=== PATIENT | male | born 2000 | race Caucasian/White ===

== ENCOUNTER 2020-01-12 17:01 | Emergency (ER) | payer OTHER ==
[2020-01-12 18:03] VITALS: BP 115/72
[2020-01-12] MEDS ORDERED: ACETAMINOPHEN 325 MG TABLET PO ONE (18:50)
[2020-01-12 19:25] LABS: ABSOLUTE LYMPHOCYTES (AUTO) 0.9 10^3/uL (0.5-4.7); ABSOLUTE MONOCYTES (AUTO) 0.4 10^3/uL (0.1-1.4); ABSOLUTE NEUT (AUTO) 9.3 10^3/uL (1.7-8.2); BASOPHILS % (AUTO) 0.4 % (0-2); EOSINOPHILS % (AUTO) 0.3 % (0-6); HEMATOCRIT 44.8 % (37.9-51.0); HEMOGLOBIN 15.6 g/dL (13.5-17.0); LYMPHOCYTES % (AUTO) 8.8 % (13-45); MEAN CORPUSCULAR HGB CONC 34.9 g/dL (32.0-36.0); MEAN CORPUSCULAR VOLUME 86 fl (80-97); MONOCYTES % (AUTO) 3.7 % (3-13); PLATELET COUNT 301 10^3/uL (150-450); RED CELL DISTRIBUTION WIDTH 12.2 % (11.5-14.0); SEGMENTED NEUTROPHILS % (AUTO) 86.8 % (42-78); TOTAL CELLS COUNTED % (AUTO) 100 %; WHITE BLOOD COUNT 10.7 10^3/uL (4.0-10.5)
[2020-01-12 19:38] LABS: ALBUMIN 4.4 g/dL (3.5-5.0); ALKALINE PHOSPHATASE 91 U/L (38-126); ANION GAP 10 (5-19); ASPARTATE AMINO TRANSFERASE 31 U/L (17-59); BILIRUBIN,DIRECT 0.1 mg/dL (0.0-0.4); BILIRUBIN,TOTAL 1.7 mg/dL (0.2-1.3); BLOOD UREA NITROGEN 12 mg/dL (7-20); CALCIUM 9.6 mg/dL (8.4-10.2); CARBON DIOXIDE 30 mmol/L (22-30); CHLORIDE 97 mmol/L (98-107); GLUCOSE 113 mg/dL (75-110); POTASSIUM 4.2 mmol/L (3.6-5.0); TOTAL PROTEIN 7.8 g/dL (6.3-8.2)
[2020-01-12] MEDS ORDERED: RINGERS SOLUTION,LACTATED 1,000 ML IV PRN (19:58)
[2020-01-12] MEDS ORDERED: ONDANSETRON HCL INJ/PF 4 MG/2 ML SDV IV ONE (19:59)
--- NOTE | 2020-01-12 20:11 | ER Document Report ---
ED General - General Chief Complaint: Nausea/Vomiting/Diarrhea Stated Complaint: COUGH,DIARRHEA Time Seen by Provider: 01/12/20 19:11 - HPI Notes: Chief complaint: Fl[place] illness History of present illness: 19-year-old generally healthy male [employer] presenting with 1 week history of cough productive of minimal amounts of white sputum. He reports some generalized malaise and within the last 24 hours has developed some watery stools. He is nauseated and has vomited once today. Low-grade temperature. Patient denies known exposure to COVID-19. He says he has not traveled outside the area. Non-smoker. Occasional social alcohol. Tonsillectomy in childhood with no other surgery. No other hospitalizations. No chronic medications. - Related Data Allergies/Adverse Reactions: gentamicin Allergy (Verified 01/12/20 18:49) peanut Allergy (Verified 01/12/20 18:49) Past Medical History - General Information source: Patient - Social History Smoking Status: Never Smoker Frequency of alcohol use: Social Drug Abuse: None Family History: Reviewed & Not Pertinent - Medical History Medical History: Negative Past Surgical History: Reports: Hx Tonsillectomy Review of Systems - Review of Systems Notes: Constitutional: As per HPI. HENT: Negative for sore throat. Denies impairment of sense of smell or taste. Eyes: Negative for visual changes. Cardiovascular: Negative for chest pain. Respiratory: As per HPI. Gastrointestinal: As per HPI. Genitourinary: Negative for dysuria. Musculoskeletal: Negative for back pain. Skin: Negative for rash. Neurological: Negative for headaches, weakness or numbness. 10 point ROS negative except as marked above and in HPI. Physical Exam - Vital signs Vitals: Temp Pulse Resp BP Pulse Ox 100.8 F H 107 H 20 115/72 94 01/12/20 17:37 01/12/20 17:37 01/12/20 17:37 01/12/20 17:37 01/12/20 17:37 Interpretation: Febrile - Notes Notes: GENERAL: Well-developed well-nourished male approximately stated age appearing in no acute distress. SKIN: Moist. Good turgor no rashes. HEAD: Normocephalic atraumatic. EYES: PERRLA. EOMI. Conjunctivae and sclerae clear. EARS: CANALS AND TMS CLEAR. NOSE: CLEAR. MOUTH: Moist mucosa. Good dentition. No stridor or edema. No drooling. NECK: Supple. No masses or thyromegaly. No adenopathy. Carotids 2+ without bruits. No JVD. BACK: Symmetrical without tenderness. CHEST: Slight cough. Respirations unlabored. Breath sounds clear and symmetrical. HEART: Regular rhythm. No murmur gallop or rub. ABDOMEN: Soft nontender without masses, organomegaly or rebound. Bowel sounds normally active. No bruits. GENITALIA: Deferred. EXTREMITIES: No edema. No calf tenderness. Cap refill less than 1.5 seconds. Dorsalis pedis and posterior tibial pulses 3+ and symmetrical. NEUROLOGICAL: GCS 15. Alert and oriented x3. Normal gait. Fluent speech. Cranial nerves II through XII intact. Sensorimotor and cerebellar normal. Normal tone. PSYCHIATRIC: Appropriate affect. Course - Re-evaluation Re-evalutation: 01/12/20 20:53 Patient has determined he wishes to sign out AMA. He appears to have adequate capacity to execute this decision. I have explained to him this is not in his best interest. He is furthermore advised that he may return here for further evaluation if he so desires at any point. - Vital Signs Vital signs: Temp Pulse Resp BP Pulse Ox 100.8 F H 107 H 20 115/72 94 01/12/20 17:37 01/12/20 17:37 01/12/20 17:37 01/12/20 17:37 01/12/20 17:37 - Laboratory Result Diagrams: 01/12/20 19:01 01/12/20 19:01 Laboratory results interpreted by me: 01/12/20 01/12/20 19:01 19:01 WBC 10.7 H Lymph % (Auto) 8.8 L Absolute Neuts (auto) 9.3 H Seg Neutrophils % 86.8 H Sodium 136.6 L Chloride 97 L Glucose 113 H Total Bilirubin 1.7 H Discharge - Discharge Clinical Impression: Left AMA Disposition: AGAINST MEDICAL ADVICE
--- NOTE | 2020-01-12 21:05 | RADIOLOGY REPORT (SQ) ---
EXAM DESCRIPTION: XR CHEST 1 VIEW COMPLETED DATE/TME: 01/12/2020 19:58 CLINICAL HISTORY: 19 years Male cough, fever COMPARISON: None. FINDINGS: The cardiomediastinal silhouette appears unremarkable. No consolidating infiltrates or pleural effusions. No pneumothorax. IMPRESSION: No acute abnormality is identified.
== END 2020-01-12 20:40 | disposition left against medical advice (07) ==
LOC: ER 17:01
DX: R11.2 Nausea with vomiting, unspecified (principal); R19.7 Diarrhea, unspecified; Z20.828 Contact with and (suspected) exposure to other viral communicable diseases
CPT/HCPCS: 99284; 36415; 85025; 87635; 80053; 71045; C9803

== ENCOUNTER 2020-01-13 09:51 | Emergency (ER) | payer OTHER ==
[2020-01-13 10:05] VITALS: BP 146/61
[2020-01-13 10:58] LABS: ABSOLUTE LYMPHOCYTES (AUTO) 1.1 10^3/uL (0.5-4.7); ABSOLUTE MONOCYTES (AUTO) 0.4 10^3/uL (0.1-1.4); ABSOLUTE NEUT (AUTO) 9.5 10^3/uL (1.7-8.2); BASOPHILS % (AUTO) 0.3 % (0-2); EOSINOPHILS % (AUTO) 0.4 % (0-6); HEMATOCRIT 44.1 % (37.9-51.0); HEMOGLOBIN 15.3 g/dL (13.5-17.0); LYMPHOCYTES % (AUTO) 9.9 % (13-45); MEAN CORPUSCULAR HEMOGLOBIN 29.8 pg (27.0-33.4); MEAN CORPUSCULAR HGB CONC 34.8 g/dL (32.0-36.0); MEAN CORPUSCULAR VOLUME 86 fl (80-97); MONOCYTES % (AUTO) 3.5 % (3-13); PLATELET COUNT 346 10^3/uL (150-450); RED BLOOD COUNT 5.14 10^6/uL (4.35-5.55); RED CELL DISTRIBUTION WIDTH 12.2 % (11.5-14.0); SEGMENTED NEUTROPHILS % (AUTO) 85.9 % (42-78); TOTAL CELLS COUNTED % (AUTO) 100 %
[2020-01-13 11:14] LABS: ALBUMIN 3.8 g/dL (3.5-5.0); ALKALINE PHOSPHATASE 70 U/L (38-126); ANION GAP 8 (5-19); ASPARTATE AMINO TRANSFERASE 35 U/L (17-59); BILIRUBIN,DIRECT 0.1 mg/dL (0.0-0.4); BILIRUBIN,TOTAL 1.3 mg/dL (0.2-1.3); BLOOD UREA NITROGEN 13 mg/dL (7-20); CALCIUM 9.1 mg/dL (8.4-10.2); CARBON DIOXIDE 28 mmol/L (22-30); CHLORIDE 99 mmol/L (98-107); GLUCOSE 121 mg/dL (75-110); POTASSIUM 4.1 mmol/L (3.6-5.0); TOTAL PROTEIN 7.1 g/dL (6.3-8.2)
--- NOTE | 2020-01-13 11:38 | ER Document Report ---
ED General - General Chief Complaint: Diarrhea Stated Complaint: COUGH,VOMITING,FEVER Time Seen by Provider: 01/13/20 11:37 - HPI Patient complains to provider of: fever Notes: Presents with several day history of fever decreased oral intake secondary to nausea and diarrhea. Concerned he could have coronavirus. Patient took Tylenol this morning at 915 febrile and mildly tachycardic here in the emergency department. Denies all the symptoms - Related Data Allergies/Adverse Reactions: gentamicin Allergy (Verified 01/12/20 18:49) peanut Allergy (Verified 01/12/20 18:49) Past Medical History - Social History Smoking Status: Never Smoker Frequency of alcohol use: Social Drug Abuse: Marijuana Family History: Reviewed & Not Pertinent Past Surgical History: Reports: Hx Tonsillectomy Review of Systems - Review of Systems Notes: REVIEW OF SYSTEMS: CONSTITUTIONAL: fever EENT: -eye pain, -difficulty swallowing, -nasal congestion CARDIOVASCULAR: -chest pain, -syncope. RESPIRATORY: -cough, -SOB GASTROINTESTINAL: -abdominal pain, positive nausea and diarhea GENITOURINARY: -dysuria, -hematuria MUSCULOSKELETAL: -back pain, -neck pain SKIN: -rash or skin lesions. HEMATOLOGIC: -easy bruising or bleeding. LYMPHATIC: -swollen, enlarged glands. NEUROLOGICAL: -altered mental status or loss of consciousness, -headache, -ne urologic symptoms PSYCHIATRIC: -anxiety, -depression. ALL OTHER SYSTEMS REVIEWED AND NEGATIVE. Physical Exam - Vital signs Vitals: Temp Pulse Resp BP Pulse Ox 100.5 F H 106 H 16 146/61 H 95 01/13/20 10:00 01/13/20 10:00 01/13/20 10:00 01/13/20 10:00 01/13/20 10:00 - Notes Notes: PHYSICAL EXAMINATION: GENERAL: Well-appearing, well-nourished and in no acute distress. HEAD: Atraumatic, normocephalic. EYES: Pupils equal round sclera anicteric, conjunctiva are normal. ENT: nares patent, oropharynx clear without exudates. Moist mucous membranes. NECK: Normal range of motion, EXTREMITIES: Normal range of motion, no pitting or edema. No cyanosis. NEUROLOGICAL: Cranial nerves grossly intact. Normal speech, normal gait. PSYCH: Normal mood, normal affect. SKIN: Warm, Dry, normal turgor, no rashes or lesions noted. Course - Re-evaluation Re-evalutation: 01/13/20 11:47 Appearing man in no acute distress presents for short duration nausea vomiting fever. Concern for coronavirus. 01/13/20 11:47 Mild leukocytosis, preserve renal function. 01/13/20 11:48 She will be given fluid resuscitation, IV dextrose antiemetics and antipyretics. Feeling markedly improved. 01/13/20 12:42 Patient is COVID test pending at this time. Chest x-ray concerning for left lower lobe pneumonia. Will initiate antibiotic therapy department follow-up PCP return if any changes - Vital Signs Vital signs: Temp Pulse Resp BP Pulse Ox 100.5 F H 106 H 16 146/61 H 95 01/13/20 10:00 01/13/20 10:00 01/13/20 10:00 01/13/20 10:00 01/13/20 10:00 - Laboratory Result Diagrams: 01/13/20 10:36 01/13/20 10:36 Laboratory results interpreted by me: 01/13/20 01/13/20 10:36 10:36 WBC 11.0 H Lymph % (Auto) 9.9 L Absolute Neuts (auto) 9.5 H Seg Neutrophils % 85.9 H Sodium 135.0 L Glucose 121 H Discharge - Discharge Clinical Impression: Exposure to COVID-19 virus Pneumonia Qualifiers: Pneumonia type: due to unspecified organism Laterality: left Lung location: lower lobe of lung Qualified Code(s): J18.9 - Pneumonia, unspecified organism Condition: Stable Disposition: HOME, SELF-CARE Instructions: COVID-19 Guidance for Persons Under Investigation Additional Instructions: See your PCP Prescriptions: Cefdinir 300 mg PO BID 7 Days #14 capsule
[2020-01-13] MEDS ORDERED: ONDANSETRON HCL INJ/PF 4 MG/2 ML SDV IV ONE (11:43)
[2020-01-13] MEDS ORDERED: NORMAL SALINE 1000 ML 1,000 ML IV ONE (11:43)
[2020-01-13] MEDS ORDERED: DEXTROSE 50%-WATER 25 GM/50 ML DISP.SYRIN IV ONE (11:43)
[2020-01-13] MEDS ORDERED: IBUPROFEN 600 MG TABLET PO ONE (11:44)
--- NOTE | 2020-01-13 12:38 | RADIOLOGY REPORT (SQ) ---
EXAM DESCRIPTION: CHEST SINGLE VIEW IMAGES COMPLETED DATE/TIME: 01/13/2020 11:59 am REASON FOR STUDY: cough COMPARISON: 01/12/2020 EXAM PARAMETERS: NUMBER OF VIEWS: One view. TECHNIQUE: Single frontal radiographic view of the chest acquired. RADIATION DOSE: NA LIMITATIONS: None. FINDINGS: LUNGS AND PLEURA: Ill-defined opacification in the left base. MEDIASTINUM AND HILAR STRUCTURES: No masses. Contour normal. HEART AND VASCULAR STRUCTURES: Heart normal in size. Normal vasculature. BONES: No acute findings. HARDWARE: None in the chest. OTHER: No other significant finding. IMPRESSION: Cannot exclude a limited left lower lobe pneumonia. TECHNICAL DOCUMENTATION: JOB ID: [id number] 2010 [employer]- All Rights Reserved Reading location - IP/workstation name: [email or web address]
== END 2020-01-13 12:57 | disposition home or self-care (01) ==
LOC: ER 09:51
DX: J18.9 Pneumonia, unspecified organism (principal); R50.9 Fever, unspecified; R11.2 Nausea with vomiting, unspecified; R19.7 Diarrhea, unspecified; Z88.1 Allergy status to other antibiotic agents; Z91.010 Allergy to peanuts; Z20.828 Contact with and (suspected) exposure to other viral communicable diseases
CPT/HCPCS: 99284; 96361; 96374; 96375; 36415; 85025; 80053; 71045; J3490; J2405; J7030

== ENCOUNTER 2020-03-24 18:37 | Emergency (ER) | payer OTHER ==
[2020-03-24 18:54] VITALS: BP 142/87
--- NOTE | 2020-03-24 19:02 | ER Document Report ---
ED Breast Problem - General Chief Complaint: Breast Lump Stated Complaint: BREAST LUMP Time Seen by Provider: 03/24/20 18:52 Mode of Arrival: Ambulatory Information source: Patient Notes: 19-year-old male presented to ED for having lump in the right breast at 9 o'clock position. He states he does not know how long it is been there. He states 1 day he bumped against it and it was tender and since then he is noticed that is gotten larger. He is concerned because now he thinks he is feeling 1 in the other breast as well. 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 I have instructed him that we do not do ultrasounds of the breast in the emergency room except for abscesses which this is not an abscess. I stated that he would need to follow-up with his primary care doctor. He verbalized that he is active duty [employer] and he will have to go to the ER at [facility] because he does not have a primary care doctor. - HPI Patient complains to provider of: Lump, Swelling Onset: Other - States he first noticed it a month ago Onset/Duration: Persistent Quality of pain: No pain Severity: None Pain Level: Denies Discharge description: None Associated Symptoms: None Similar symptoms previously: Yes Recently seen / treated by doctor: No - Related Data Allergies/Adverse Reactions: gentamicin Allergy (Verified 01/12/20 18:49) peanut Allergy (Verified 01/12/20 18:49) Past Medical History - General Information source: Patient - Social History Smoking Status: Former Smoker Cigarette use (# per day): No Chew tobacco use (# tins/day): No Smoking Education Provided: No Frequency of alcohol use: Social Drug Abuse: None Occupation: Active duty [employer] Lives with: Spouse/Significant other Family History: Reviewed & Not Pertinent Patient has suicidal ideation: No Patient has homicidal ideation: No - Past Medical History Cardiac Medical History: Reports: None Pulmonary Medical History: Reports: Hx Pneumonia EENT Medical History: Reports: None Neurological Medical History: Reports: None Endocrine Medical History: Reports: None Renal/ Medical History: Reports: None Malignancy Medical History: Reports None GI Medical History: Reports: None Musculoskeletal Medical History: Reports None Skin Medical History: Reports None Psychiatric Medical History: Reports: None Traumatic Medical History: Reports: None Infectious Medical History: Reports: None Past Surgical History: Reports: Hx Tonsillectomy - Immunizations Immunizations up to date: Yes Hx Diphtheria, Pertussis, Tetanus Vaccination: Yes Review of Systems - Review of Systems Constitutional: No symptoms reported EENT: No symptoms reported Cardiovascular: No symptoms reported Respiratory: No symptoms reported Gastrointestinal: No symptoms reported Genitourinary: No symptoms reported Male Genitourinary: No symptoms reported Musculoskeletal: No symptoms reported Skin: Lumps - 9:00 on right breast Hematologic/Lymphatic: No symptoms reported Neurological/Psychological: No symptoms reported -: Yes All other systems reviewed and negative Physical Exam - Vital signs Vitals: Temp Pulse Resp BP Pulse Ox 99.0 F 78 18 142/87 H 98 03/24/20 18:53 03/24/20 18:53 03/24/20 18:53 03/24/20 18:53 03/24/20 18:53 Interpretation: Normal - General General appearance: Appears well, Alert - HEENT Head: Normocephalic, Atraumatic Eyes: Normal Pupils: PERRL - Respiratory Respiratory status: No respiratory distress Chest status: Nontender Breath sounds: Normal Chest palpation: Normal - Cardiovascular Rhythm: Regular Heart sounds: Normal auscultation Murmur: No - Abdominal Inspection: Normal Distension: No distension Bowel sounds: Normal Tenderness: Nontender Organomegaly: No organomegaly - Back Back: Normal, Nontender - Extremities General upper extremity: Normal inspection, Nontender, Normal color, Normal ROM, Normal temperature General lower extremity: Normal inspection, Nontender, Normal color, Normal ROM, Normal temperature, Normal weight bearing. No: Jagdeep's sign - Neurological Neuro grossly intact: Yes Cognition: Normal Orientation: AAOx4 Heather Coma Scale Eye Opening: Spontaneous Heather Coma Scale Verbal: Oriented Heather Coma Scale Motor: Obeys Commands Heather Coma Scale Total: 15 Speech: Normal Motor strength normal: LUE, RUE, LLE, RLE Sensory: Normal - Psychological Associated symptoms: Normal affect, Normal mood - Skin Skin Temperature: Warm Skin Moisture: Dry Skin Color: Normal Location of irregularity: Other - 9:00 o'clock right breast small lump Irregularity with: negative: Tenderness Course - Re-evaluation Re-evalutation: 03/24/20 21:44 Discussed with the doctors chief controller tower. Patient needs to follow-up with his primary care to get scheduled for a breast ultrasound or mammogram for this breast lump. This is a little emergency that needs to be seen by at this time as it is not an abscess. Patient was instructed to please follow-up with his doctor. Patient verbalized understanding and agreement with treatment plan patient was discharged home. - Vital Signs Vital signs: Temp Pulse Resp BP Pulse Ox 99.0 F 78 18 142/87 H 98 03/24/20 18:53 03/24/20 18:53 03/24/20 18:53 03/24/20 18:53 03/24/20 18:53 Discharge - Discharge Clinical Impression: Breast lump on right side at 9 o'clock position Condition: Stable Disposition: HOME, SELF-CARE Additional Instructions: Breast Lumps There is a lump in your breast. We realize this will worry you. Most breast masses are not cancer. Most breast masses are fibrocystic disease, simple cysts, or fibroadenoma, which are benign. The first step is usually a mammogram or ultrasound of the breast. Your private physician, or a surgeon, can complete the evaluation. Be sure to keep your follow-up appointment. If the lump is malignant, early removal is your best chance of a cure. FOLLOW-UP CARE: If you have been referred to a physician for follow-up care, call the physicians office for an appointment as you were instructed or within the next two days. If you experience worsening or a significant change in your symptoms, notify the physician immediately or return to the Emergency Department at any time for re-evaluation. Follow-up with your primary doctor. Forms: Elevated Blood Pressure
== END 2020-03-24 19:19 | disposition home or self-care (01) ==
LOC: ER 18:37
DX: N63.11 Unspecified lump in the right breast, upper outer quadrant (principal)
CPT/HCPCS: 99282